=== PATIENT | male | born 1960 | race Caucasian/White ===

== ENCOUNTER 2020-05-22 12:23 | Inpatient (IN) ==
[2020-05-22] MEDS ORDERED: NS 0.9% 1000 ml BAG 1,000 ML IV ONE ×3 (13:14→22:23)
[2020-05-22 14:29] LABS: Hematocrit 34 % (42-52); Hemoglobin 11.8 g/dL (14.0-18.0); Mean Corpuscular HGB Conc 35 g/dL (31-36); Mean Corpuscular Hemoglobin 29 pg (27-31); Mean Corpuscular Volume 83 fL (80-94); Mean Platelet Volume 7.1 fL (7.4-10.4); Platelet Count 601 10^3/uL (150-450); Red Blood Count 4.04 10^6 /uL (4.18-5.48); Red Cell Distribution Width 14 % (10-15); White Blood Count 27.4 10^3/uL (3.5-10.8)
[2020-05-22] MEDS ORDERED: HYDROcodone/ACETAMIN 5/325 mg TAB PO PRN (14:30)
[2020-05-22 14:38] LABS: Albumin 3.7 g/dL (3.2-5.2); CO2 Carbon Dioxide 17 mmol/L (22-32); Calcium 9.5 mg/dL (8.6-10.3); Chloride 96 mmol/L (101-111); Sodium 127 mmol/L (135-145)
[2020-05-22 14:44] LABS: ALT 37 U/L (7-52); Albumin/Globulin Ratio 1.2 (1-3); Alkaline Phosphatase 101 U/L (34-104); Anion Gap 14 mmol/L (2-11); BUN/Creatinine Ratio 33.7 (8-20); Blood Urea Nitrogen 63 mg/dL (6-24); C Reactive Protein 206.96 mg/L (<8.01); EGFR African American 44.6 (>60); EGFR Non-African American 36.9 (>60); Globulin 3.2 g/dL (2-4); Glucose 142 mg/dL (70-100); Total Protein 6.9 g/dL (6.4-8.9)
[2020-05-22 14:49] LABS: Body Fluid Source Synovial Fluid
[2020-05-22] MEDS ORDERED: cefTRIAXone 1 gm/50 mL NS BAG 1 GM/50 ML BAG IVPB ONE (15:02)
[2020-05-22] MEDS ORDERED: Vancomycin 1,250 MG in NS 0.9% 250 ml 250 ML IVPB ONE (15:03)
[2020-05-22] MEDS ORDERED: oxyCODONE/Acetamin 5/325 mg TAB PO ONE (15:03)
[2020-05-22] MEDS ORDERED: NS 0.9% 1000 ml BAG 1,000 ML IV SCH ×2 (15:15→23:36)
[2020-05-22] MEDS ORDERED: Vancomycin 1,500 MG in NS 0.9% 250 ml 250 ML IVPB ONE (15:16)
[2020-05-22] MEDS ORDERED: oxyCODONE/Acetamin 5/325 mg TAB PO PRN (15:48)
[2020-05-22] MEDS ORDERED: Vancomycin per Pharmacy 1 EA NOTE FOLLOW UP SCH (16:00)
[2020-05-22 16:15] LABS: Urine Appearance Turbid; Urine Bilirubin Negative (Negative); Urine Blood 3+ (Negative); Urine Color Yellow; Urine Glucose Negative (Negative); Urine Ketones Negative (Negative); Urine Nitrite Negative (Negative); Urine Protein 2+(100 mg/dL) (Negative); Urine Urobilinogen Negative (Negative)
[2020-05-22 16:18] LABS: Urine Bacteria 3+ (Absent); Urine Red Blood Cell 3+(>10/hpf) (Absent); Urine White Blood Cell 3+(>20/hpf) (Absent)
[2020-05-22 16:21] LABS: Potassium Redraw 4.4 mmol/L (3.5-5.0)
[2020-05-22 16:57] LABS: Erythrocyte Sed Rate > 120 mm/Hr (0-19)
[2020-05-22] MEDS: Polyethylene Glycol 3350 17 GM PACKET PO SCH (17:08)
[2020-05-22 17:58] LABS: ABS Basophils 0.1 10^3/ul (0-0.2); ABS Lymphocytes 1.2 10^3/ul (1.0-4.8); ABS Monocytes 1.1 10^3/ul (0-0.8); Lymphocyte % 4.3 %
[2020-05-22] MEDS ORDERED: Bacitracin INJECTION 50,000 UNITS ONE (18:04)
[2020-05-22] MEDS ORDERED: Ondansetron 4 mg VIAL 2 MG/ML 2 ml VIAL ONE (18:05)
[2020-05-22] MEDS ORDERED: Propofol 10 MG/ML 20 ML BTL ONE (18:05)
[2020-05-22] MEDS ORDERED: Lidocaine 2% PF 5 ML VIAL ONE (18:06)
[2020-05-22] MEDS ORDERED: Midazolam 2 mg/2 ml VIAL 1 mg/ml 2 ml VIAL (2 mg) ONE (18:06)
[2020-05-22] MEDS ORDERED: fentaNYL 100 mcg/2 ml 50 MCG/ML VIAL ONE (18:06)
[2020-05-22] MEDS ORDERED: ceFAZolin 2 GM PREMIX 2 GM/50 ML BAG ONE (18:10)
[2020-05-22] MEDS ORDERED: fentaNYL 250 mcg/5 ml 50 MCG/ML 5 ml VIAL (250 MCG) ONE (18:14)
[2020-05-22 18:21] LABS: Body Fluid Mono 6 %
[2020-05-22] MEDS ORDERED: Phenylephrine IV 10 MG/ML 1 ml VIAL ONE (18:44)
[2020-05-22] MEDS ORDERED: Cefepime 2 GM in Dextrose 2 GM/50 ML BAG IV SCH (20:00)
[2020-05-22] MEDS: oxyCODONE/Acetamin 5/325 mg TAB PO PRN (22:40)
[2020-05-22] MEDS: Heparin 5000 UNITS/ML 1 mL VIAL SUBCUT SCH (22:46)
[2020-05-22 23:05] LABS: BUN/Creatinine Ratio 33.1 (8-20); Calcium 8.9 mg/dL (8.6-10.3); EGFR African American 50.2 (>60); EGFR Non-African American 41.5 (>60); Potassium 3.9 mmol/L (3.5-5.0)
[2020-05-23] MEDS: Ondansetron 4 mg VIAL 2 MG/ML 2 ml VIAL IV PRN ×3 (02:56→12:25)
[2020-05-23] MEDS ORDERED: Metoclopramide 5 MG/ML VIAL (10 mg) IV ONE (05:57)
[2020-05-23] MEDS ORDERED: Vancomycin Random Level NOTE FOLLOW UP ONE (06:00)
[2020-05-23] MEDS ORDERED: Metoclopramide 5 MG/ML VIAL (10 mg) ONE (06:00)
[2020-05-23] MEDS: Heparin 5000 UNITS/ML 1 mL VIAL SUBCUT SCH ×3 (06:05→22:29)
[2020-05-23 06:06] LABS: ABS Lymphocytes 1.3 10^3/ul (1.0-4.8); ABS Monocytes 1.2 10^3/ul (0-0.8); ABS Neutrophils 15.4 10^3/ul (1.5-7.7); Hematocrit 28 % (42-52); Hemoglobin 9.5 g/dL (14.0-18.0); Lymphocyte % 7.3 %; Mean Corpuscular HGB Conc 33 g/dL (31-36); Mean Corpuscular Hemoglobin 28 pg (27-31); Mean Corpuscular Volume 84 fL (80-94); Mean Platelet Volume 6.3 fL (7.4-10.4); Platelet Count 410 10^3/uL (150-450); Red Blood Count 3.39 10^6 /uL (4.18-5.48); Red Cell Distribution Width 14 % (10-15); White Blood Count 17.9 10^3/uL (3.5-10.8)
[2020-05-23 06:15] LABS: BUN/Creatinine Ratio 37.2 (8-20); Calcium 8.3 mg/dL (8.6-10.3); EGFR African American 79.8 (>60); Potassium 3.8 mmol/L (3.5-5.0)
[2020-05-23] MEDS ORDERED: Vancomycin(*) 1,250 MG IV Q12H IVPB SCH (09:30)
[2020-05-23] MEDS: Polyethylene Glycol 3350 17 GM PACKET PO SCH (09:38)
[2020-05-23] MEDS: Cefepime 2 GM in Dextrose 2 GM/50 ML BAG IV SCH ×2 (10:26→10:30)
[2020-05-24 05:22] LABS: ABS Eosinophils 0.1 10^3/ul (0-0.6); ABS Lymphocytes 1.8 10^3/ul (1.0-4.8); ABS Monocytes 1.1 10^3/ul (0-0.8); ABS Neutrophils 13.1 10^3/ul (1.5-7.7); Eosinophil % 0.5 %; Hematocrit 29 % (42-52); Hemoglobin 9.9 g/dL (14.0-18.0); Lymphocyte % 11.4 %; Mean Corpuscular HGB Conc 35 g/dL (31-36); Mean Corpuscular Hemoglobin 29 pg (27-31); Mean Corpuscular Volume 82 fL (80-94); Mean Platelet Volume 6.4 fL (7.4-10.4); Platelet Count 423 10^3/uL (150-450); Red Blood Count 3.47 10^6 /uL (4.18-5.48); Red Cell Distribution Width 14 % (10-15); White Blood Count 16.1 10^3/uL (3.5-10.8)
[2020-05-24 05:37] LABS: Albumin/Globulin Ratio 0.9 (1-3); BUN/Creatinine Ratio 35.2 (8-20); C Reactive Protein 153.82 mg/L (<8.01); EGFR African American 136.5 (>60); EGFR Non-African American 112.8 (>60); Globulin 3.3 g/dL (2-4); Potassium 3.4 mmol/L (3.5-5.0); Total Bilirubin 0.6 mg/dL (0.2-1.0); Total Protein 6.3 g/dL (6.4-8.9)
[2020-05-24] MEDS: Heparin 5000 UNITS/ML 1 mL VIAL SUBCUT SCH ×3 (05:43→21:55)
[2020-05-24] MEDS ORDERED: Vancomycin Trough Check NOTE FOLLOW UP ONE (09:00)
[2020-05-24] MEDS ORDERED: cefTRIAXone 2 GM ADDV.VIAL 2 GM in NS 0.9% 100 ml BAG 100 ML IV SCH (09:00)
[2020-05-24] MEDS: Polyethylene Glycol 3350 17 GM PACKET PO SCH (09:12)
[2020-05-24] MEDS: KCL 20 MEQ/100 ML IVPREMIX 20 MEQ/100 ML BAG IV SCH ×2 (09:13→14:43)
[2020-05-25 06:03] LABS: ABS Eosinophils 0.2 10^3/ul (0-0.6); ABS Lymphocytes 2.5 10^3/ul (1.0-4.8); ABS Monocytes 0.9 10^3/ul (0-0.8); ABS Neutrophils 10.7 10^3/ul (1.5-7.7); Eosinophil % 1.1 %; Hematocrit 29 % (42-52); Hemoglobin 9.5 g/dL (14.0-18.0); Lymphocyte % 17.2 %; Mean Corpuscular HGB Conc 33 g/dL (31-36); Mean Corpuscular Hemoglobin 28 pg (27-31); Mean Corpuscular Volume 84 fL (80-94); Mean Platelet Volume 6.6 fL (7.4-10.4); Platelet Count 491 10^3/uL (150-450); Red Blood Count 3.42 10^6 /uL (4.18-5.48); Red Cell Distribution Width 14 % (10-15); White Blood Count 14.3 10^3/uL (3.5-10.8)
[2020-05-25 06:20] LABS: Albumin 2.8 g/dL (3.2-5.2); Albumin/Globulin Ratio 0.9 (1-3); BUN/Creatinine Ratio 30.6 (8-20); Calcium 8.8 mg/dL (8.6-10.3); EGFR African American 134.3 (>60); Globulin 3.1 g/dL (2-4); Potassium 3.8 mmol/L (3.5-5.0); Total Bilirubin 0.4 mg/dL (0.2-1.0); Total Protein 5.9 g/dL (6.4-8.9)
[2020-05-25] MEDS: Heparin 5000 UNITS/ML 1 mL VIAL SUBCUT SCH ×3 (06:38→21:13)
[2020-05-25] MEDS: Polyethylene Glycol 3350 17 GM PACKET PO SCH (09:44)
[2020-05-25] MEDS: cefTRIAXone 2 GM ADDV.VIAL 2 GM in NS 0.9% 100 ml BAG 100 ML IV SCH (14:47)
[2020-05-25] MEDS ORDERED: NS 0.9% 1000 ml BAG 1,000 ML IV ONE (18:18)
[2020-05-26] MEDS: Heparin 5000 UNITS/ML 1 mL VIAL SUBCUT SCH ×3 (05:35→21:12)
[2020-05-26 06:10] LABS: ABS Eosinophils 0.2 10^3/ul (0-0.6); ABS Lymphocytes 2.9 10^3/ul (1.0-4.8); ABS Monocytes 1.2 10^3/ul (0-0.8); ABS Neutrophils 9.5 10^3/ul (1.5-7.7); Eosinophil % 1.1 %; Hematocrit 26 % (42-52); Hemoglobin 9.3 g/dL (14.0-18.0); Lymphocyte % 21.3 %; Mean Corpuscular HGB Conc 36 g/dL (31-36); Mean Corpuscular Hemoglobin 30 pg (27-31); Mean Corpuscular Volume 84 fL (80-94); Mean Platelet Volume 6.4 fL (7.4-10.4); Platelet Count 489 10^3/uL (150-450); Red Blood Count 3.11 10^6 /uL (4.18-5.48); Red Cell Distribution Width 14 % (10-15); White Blood Count 13.7 10^3/uL (3.5-10.8)
[2020-05-26 06:27] LABS: Albumin 2.7 g/dL (3.2-5.2); Albumin/Globulin Ratio 0.9 (1-3); BUN/Creatinine Ratio 23.7 (8-20); Calcium 8.4 mg/dL (8.6-10.3); EGFR Non-African American 139.7 (>60); Globulin 2.9 g/dL (2-4); Potassium 3.6 mmol/L (3.5-5.0); Total Bilirubin 0.5 mg/dL (0.2-1.0); Total Protein 5.6 g/dL (6.4-8.9)
[2020-05-26 08:36] LABS: C Reactive Protein 103.06 mg/L (<8.01)
[2020-05-26] MEDS: Polyethylene Glycol 3350 17 GM PACKET PO SCH (08:59)
[2020-05-26] MEDS: oxyCODONE/Acetamin 5/325 mg TAB PO PRN (09:39)
[2020-05-26] MEDS: cefTRIAXone 2 GM ADDV.VIAL 2 GM in NS 0.9% 100 ml BAG 100 ML IV SCH (14:53)
[2020-05-27] MEDS: Heparin 5000 UNITS/ML 1 mL VIAL SUBCUT SCH ×3 (05:52→21:27)
[2020-05-27] MEDS: Polyethylene Glycol 3350 17 GM PACKET PO SCH (10:28)
[2020-05-27] MEDS: cefTRIAXone 2 GM ADDV.VIAL 2 GM in NS 0.9% 100 ml BAG 100 ML IV SCH (14:03)
[2020-05-27 16:48] LABS: Urine Appearance Cloudy; Urine Bilirubin Negative (Negative); Urine Blood 3+ (Negative); Urine Color Yellow; Urine Glucose Negative (Negative); Urine Ketones Negative (Negative); Urine Nitrite Negative (Negative); Urine Protein 1+(30 mg/dL) (Negative); Urine Specific Gravity 1.013 (1.010-1.030); Urine Urobilinogen Negative (Negative)
[2020-05-27 16:55] LABS: Urine Bacteria Absent (Absent); Urine Red Blood Cell 3+(>10/hpf) (Absent); Urine White Blood Cell 2+(11-20/hpf) (Absent)
[2020-05-27] MEDS: Ondansetron 4 mg VIAL 2 MG/ML 2 ml VIAL IV PRN (19:44)
[2020-05-28] MEDS: Ondansetron 4 mg VIAL 2 MG/ML 2 ml VIAL IV PRN (03:00)
[2020-05-28 05:13] LABS: Hematocrit 26 % (42-52); Hemoglobin 8.9 g/dL (14.0-18.0); Mean Corpuscular HGB Conc 34 g/dL (31-36); Mean Corpuscular Hemoglobin 29 pg (27-31); Mean Corpuscular Volume 84 fL (80-94); Mean Platelet Volume 6.1 fL (7.4-10.4); Platelet Count 580 10^3/uL (150-450); Red Blood Count 3.12 10^6 /uL (4.18-5.48); Red Cell Distribution Width 13 % (10-15); White Blood Count 12.7 10^3/uL (3.5-10.8)
[2020-05-28] MEDS: Heparin 5000 UNITS/ML 1 mL VIAL SUBCUT SCH ×3 (05:25→22:22)
[2020-05-28 05:29] LABS: C Reactive Protein 114.51 mg/L (<8.01); Calcium 8.7 mg/dL (8.6-10.3); EGFR African American 151.1 (>60); EGFR Non-African American 124.9 (>60); Potassium 3.6 mmol/L (3.5-5.0)
[2020-05-28 06:43] LABS: ABS Basophils 0.1 10^3/ul (0-0.2); ABS Eosinophils 0.1 10^3/ul (0-0.6); ABS Lymphocytes 2.1 10^3/ul (1.0-4.8); ABS Neutrophils 9.4 10^3/ul (1.5-7.7); Eosinophil % 1.1 %; Lymphocyte % 16.4 %
[2020-05-28] MEDS: Polyethylene Glycol 3350 17 GM PACKET PO SCH (07:44)
[2020-05-28] MEDS ORDERED: Midazolam 5 mg/5 ml VIAL 1 mg/ml 5 ml VIAL (5 mg) ONE (08:36)
[2020-05-28] MEDS ORDERED: Flumazenil 0.5 mg/5 ml 0.1 MG/ML 5 ml VIAL ONE (08:36)
[2020-05-28] MEDS ORDERED: fentaNYL 100 mcg/2 ml 50 MCG/ML VIAL ONE (08:36)
[2020-05-28] MEDS ORDERED: Naloxone 0.4 mg VIAL 0.4 mg/ml 1 ml VIAL ONE (08:36)
[2020-05-28] MEDS: cefTRIAXone 2 GM ADDV.VIAL 2 GM in NS 0.9% 100 ml BAG 100 ML IV SCH (13:59)
[2020-05-29 05:43] LABS: ABS Basophils 0.1 10^3/ul (0-0.2); ABS Eosinophils 0.1 10^3/ul (0-0.6); ABS Lymphocytes 2.4 10^3/ul (1.0-4.8); ABS Monocytes 0.9 10^3/ul (0-0.8); ABS Neutrophils 6.8 10^3/ul (1.5-7.7); Eosinophil % 1.1 %; Hematocrit 27 % (42-52); Hemoglobin 8.9 g/dL (14.0-18.0); Mean Corpuscular HGB Conc 33 g/dL (31-36); Mean Corpuscular Hemoglobin 28 pg (27-31); Mean Corpuscular Volume 84 fL (80-94); Mean Platelet Volume 6.2 fL (7.4-10.4); Platelet Count 633 10^3/uL (150-450); Red Blood Count 3.18 10^6 /uL (4.18-5.48); Red Cell Distribution Width 14 % (10-15); White Blood Count 10.3 10^3/uL (3.5-10.8)
[2020-05-29] MEDS: Heparin 5000 UNITS/ML 1 mL VIAL SUBCUT SCH ×3 (05:56→22:17)
[2020-05-29 06:03] LABS: BUN/Creatinine Ratio 16.9 (8-20); C Reactive Protein 101.79 mg/L (<8.01); Calcium 8.3 mg/dL (8.6-10.3); EGFR Non-African American 139.7 (>60); Potassium 3.7 mmol/L (3.5-5.0)
[2020-05-29] MEDS: Polyethylene Glycol 3350 17 GM PACKET PO SCH (09:34)
[2020-05-29 10:31] LABS: Albumin 2.7 g/dL (3.2-5.2); Albumin/Globulin Ratio 0.8 (1-3); Globulin 3.2 g/dL (2-4); Indirect Bilirubin 0.3 mg/dL (0.3-1.0); Total Bilirubin 0.4 mg/dL (0.2-1.0); Total Protein 5.9 g/dL (6.4-8.9)
[2020-05-29] MEDS: ceFAZolin 2 GM PREMIX 2 GM/50 ML BAG IVPB SCH ×2 (15:26→22:18)
[2020-05-30] MEDS: Heparin 5000 UNITS/ML 1 mL VIAL SUBCUT SCH ×3 (06:08→22:02)
[2020-05-30] MEDS: ceFAZolin 2 GM PREMIX 2 GM/50 ML BAG IVPB SCH ×3 (06:09→22:02)
[2020-05-30] MEDS: Polyethylene Glycol 3350 17 GM PACKET PO SCH (09:32)
[2020-05-31] MEDS: ceFAZolin 2 GM PREMIX 2 GM/50 ML BAG IVPB SCH ×3 (05:59→21:52)
[2020-05-31] MEDS: Heparin 5000 UNITS/ML 1 mL VIAL SUBCUT SCH ×3 (05:59→21:52)
[2020-05-31] MEDS: Polyethylene Glycol 3350 17 GM PACKET PO SCH (08:21)
[2020-05-31 08:53] LABS: Albumin 2.9 g/dL (3.2-5.2); Albumin/Globulin Ratio 0.8 (1-3); BUN/Creatinine Ratio 15.5 (8-20); Calcium 8.7 mg/dL (8.6-10.3); EGFR African American 172.3 (>60); EGFR Non-African American 142.4 (>60); Globulin 3.6 g/dL (2-4); Potassium 3.7 mmol/L (3.5-5.0); Total Bilirubin 0.3 mg/dL (0.2-1.0); Total Protein 6.5 g/dL (6.4-8.9)
[2020-05-31 09:01] LABS: ABS Basophils 0.1 10^3/ul (0-0.2); ABS Eosinophils 0.1 10^3/ul (0-0.6); ABS Lymphocytes 2.1 10^3/ul (1.0-4.8); ABS Monocytes 0.7 10^3/ul (0-0.8); ABS Neutrophils 5.6 10^3/ul (1.5-7.7); Eosinophil % 1.4 %; Hematocrit 28 % (42-52); Hemoglobin 9.3 g/dL (14.0-18.0); Lymphocyte % 24.2 %; Mean Corpuscular HGB Conc 33 g/dL (31-36); Mean Corpuscular Hemoglobin 28 pg (27-31); Mean Corpuscular Volume 84 fL (80-94); Mean Platelet Volume 6.5 fL (7.4-10.4); Platelet Count 720 10^3/uL (150-450); Red Blood Count 3.32 10^6 /uL (4.18-5.48); Red Cell Distribution Width 14 % (10-15); White Blood Count 8.6 10^3/uL (3.5-10.8)
[2020-06-01] MEDS: ceFAZolin 2 GM PREMIX 2 GM/50 ML BAG IVPB SCH (06:08)
[2020-06-01] MEDS: Heparin 5000 UNITS/ML 1 mL VIAL SUBCUT SCH (06:08)
[2020-06-01] MEDS: oxyCODONE/Acetamin 5/325 mg TAB PO PRN (08:10)
[2020-06-01] MEDS: Polyethylene Glycol 3350 17 GM PACKET PO SCH (08:18)
[2020-06-01 11:24] VITALS: BP 119/74
[2020-06-01] MEDS ORDERED: Linezolid 600 MG IVPREMIX(*) 600 MG/300 ML BAG IVPB ONE (12:40)
== END 2020-06-01 14:15 | DRG 854 ==
LOC: SSU 12:23 → ED 12:23 → SSU 16:44
PROVIDERS: ADMIT Orthopaedic Surgery Adult Reconstructive Orthopaedic Surgery; ATTEND Orthopaedic Surgery Adult Reconstructive Orthopaedic Surgery